=== PATIENT | female | born 1975 | race Hispanic/Latino ===

== ENCOUNTER 2016-06-30 18:14 | Emergency (ER) | payer OTHER ==
[~2016-06-30] VITALS: Ht 152.4 cm; Wt 84.5 kg
[2016-06-30 18:25] VITALS: BP 122/84; PULSE 72; RESP 16; O2SAT 100
--- NOTE | 2016-06-30 19:32 | ED.REPORT ---
HPI-Headache Date of Service Jun 30, 2016 ED Provider: Sarah AriasO. A 40 year old female with a history of migraines presents to the ED from Urgent Care with a headache onset 2130 last night after work. Associated symptoms include subjective fever, neck pain/pressure, sore throat, and dizziness described as "room spinning." The patient denies rhinorrhea, cough, or other symptoms. Her symptoms are dissimilar from and worse than previous migraines. Nursing Notes Stated Complaint: DIZZINESS, HEADACHE, CHILLS Chief Complaint: Headache Nursing Notes Reviewed: Yes Allergies: Coded Allergies: latex (Verified Allergy, Severe, HIVES, 06/30/16) Uncoded Allergies: UNK (Allergy, Unknown, 10/21/04) No Active Prescriptions or Reported Meds General Time Seen by MD: 19:32 Chief Complaint Headache Hx Obtained From: Patient Arrived By: Walk-in Sudden in Onset?: No Onset Occurred: 21 - 23 hours ago Symptom Duration: Since onset Location: : Generalized Quality: Painful Severity: Current: Moderate Severity: Maximum: Moderate Associated with: Reports: Fever Pertinent Negative: Relieved by nothing Related History: Reports: Headache, migraine hx Recent Healthcare: No recent doctor visit Similar Sx Previous: No Risk-Headache NIH Stroke Scale Level of Consciousness: Alert and responsive (0) Ask Month & Age: Both questions right (0) Open/Close Eyes/Hand [employer]: Performs both tasks (0) Horizontal EO Movements: None (0) Facial Palsy: Normal symmetry (0) Right Arm Motor Drift (10s): No drift 10 sec (0) Left Arm Motor Drift (10s): No drift 10 sec (0) Right Leg Motor Drift (5s): No drift 5 sec (0) Left Leg Motor Drift (5s): No drift 5 sec (0) Limb Ataxia FNF/Heel-White: No ataxia (0) Sensation (Arms/Legs/Face): No sensory loss (0) Language Aphasia: No aphasia, normal (0) Dysarthria: No dysarthria, normal (0) NIHSS Score: 0 Time NIHSS Performed: 19:59 Past Medical History Past Medical History Migraines Past Surgical History Endoscopic cholecystectomy with operative cholangiography Inguinal hernia repair x2 at age 9 Smoking History Unknown if Ever Smoker Social History Other Social History: Good social support Occupation Works in surgery at [employer] Ambulatory Status Independent Review of Systems Constitutional: Reports: Fever (Subjective) Ears / Nose / Throat: Reports: Sore throat GI: Denies: Diarrhea, Vomiting Musculoskeletal: Reports: Neck pain (Pressure) Neurologic: Reports: Dizziness, Headache Complete sys rev & neg: except as marked. Respiratory: Denies: Non-productive cough, Shortness of breath Allergy / Immune: Denies: Rhinorrhea Physical Exam Initial Vital Signs Vital Signs (First) Date Time Temp Pulse Resp B/P Pulse Ox O2 Delivery O2 Flow Rate FiO2 06/30/16 18:25 36.8 72 16 122/84 100 Room Air Initial VS: Reviewed Respiratory: Breath sounds normal, Clear to auscultation, No respiratory distress Cardiovascular: Regular rate & rhythm, Heart sounds normal Abdomen / GI: Soft, Non-tender Skin: Warm, Dry, No cyanosis Psychiatric: Mood/affect normal, Behavior normal, Normal thought content General/Constitutional: Awake, Alert, No acute distress Head / Eyes: Atraumatic, Normocephalic, PERRL, EOMI Neck: Supple, Full range of motion, Non-tender Neurologic: Oriented X3, Speech NL, No motor deficits, No sensory deficits ENT: Airway patent, Mucous membranes moist Pharynx / Tonsils / Uvula: Positive: Tonsillar erythema L, Tonsillar erythema R , Tonsillar swelling L, Tonsillar swelling R Interpretation & Diagnostics Interpretation & Diagnostics: INFLUENZA NEGATIVE RAPID STREP NEGATIVE Lab Results Interpretation Result Diagram: 06/30/16200706/30/162007 Test 06/30/16 20:08 White Blood Count 8.4th/mm3 (3.8-10.1) Red Blood Count 4.65mil/mm3 (3.90-5.20) Hemoglobin 9.2g/dL (12.0-15.6) Hematocrit 31.4% (35.0-46.0) Mean Corpuscular Volume 67.5fL (81-100) Mean Corpuscular Hemoglobin 19.8pg (27.0-35.0) Mean Corpuscular Hemoglobin Concent 29.3% (32.0-37.0) Red Cell Distribution Width 18.7% (12.3-15.4) Platelet Count 448bil/L (150-400) Neutrophils (%) (Auto) 65.0% (40-74) Lymphocytes (%) (Auto) 22.5% (14-46) Monocytes (%) (Auto) 9.4% (4-12) Eosinophils (%) (Auto) 2.6% (0-5) Basophils (%) (Auto) 0.4% (0-3) Sodium Level 140mEq/L (134-144) Potassium Level 4.0mEq/L (3.5-5.2) Chloride Level 105mEq/L (97-108) Carbon Dioxide Level 23mmol/L (18-29) Blood Urea Nitrogen 12mg/dL (6-24) Creatinine 0.41mg/dL (0.57-1.00) Estimat Glomerular Filtration Rate 245mL/min (>59) Glucose Level 95mg/dL (60-99) Calcium Level 9.3mg/dL (8.5-10.1) Total Bilirubin 0.2mg/dL (0.0-1.2) Aspartate Amino Transf (AST/SGOT) 19U/L (0-50) Alanine Aminotransferase (ALT/SGPT) 17U/L (0-32) Alkaline Phosphatase 58U/L (25-150) C-Reactive Protein 0.4mg/dL (0.0-0.5) Total Protein 7.1g/dL (6.4-8.4) Albumin 3.8g/dL (3.4-5.0) Procalcitonin < 0.02ng/mL (0.00-0.08) CT Head Interpretation IMPRESSION: 1. No acute intracranial abnormality. Dictated by: Mark Roa M.D. on 06/30/2016 at 21:03 Study: Head CT no contrast Interpretation / Wet Read by: Interpret - Radiologist Re-Eval/Medical Decision Source of Hx: Old records Re-Evaluation/Progress : Time of Eval: 21:44 )( Patient Status: Condition improved, Pain improved Re-Evaluation/Progress Note: Patient rechecked. She is feeling much better. Discussed with patient possibility of lumbar puncture but she declines. Discussed with patient lab and CT results, diagnosis, and plan for discharge. Follow-up and return to the ER instructions given. Patient agrees with plan for care and all questions were addressed. Counseled Regarding: Diagnosis, Lab results, Need for follow-up, When/why to return to ED Discharge & Departure Impression: Primary Impression: Headache Headache type: tension-type Headache chronicity pattern: acute headache Intractability: not intractable Qualified Code: G44.209 - Tension-type headache, unspecified, not intractable Disposition: Home Discharge Condition All VS Reviewed: Yes Condition: Improved Patient Instructions: Acute Headache (ED) Additional Instructions: Thank you for entrusting us with your care. Your CT exam today was normal and your lab work was reassuring, although you were anemic and you need to begin taking daily iron supplements. Rest tonight and do not drive or consume sedating medication tonight. Stay home from work tomorrow. Please take Ativan, 1/2 tablet every 8 hours, as needed for your muscle spasms or tension headache. Do not drink alcohol or drive while taking Ativan. Call your primary care provider tomorrow for a follow-up appointment to discuss your headache and anemia. Return to the ER with any new or worsening symptoms including fever, neck stiffness, and worsening headache. Referrals: [facility] (PCP) [facility] Latohsa Attestation Portions of this note were transcribed by Lori Arevalo. I, Dr. Perez, personally performed the history, physical exam, and medical decision-making; I reviewed and confirmed the accuracy of the information in the transcribed note. Signed by: Latosha Mckinney, 06/30/2016, 22:07 copies to: [facility] Kade Perez DO Jun 30, 2016 19:32 LORI AREVALO Jun 30, 2016 20:02
[2016-06-30] MEDS ORDERED: diphenhydrAMINE 25 mg Capsule PO ONE (20:00)
[2016-06-30] MEDS ORDERED: Dexamethasone 10 mg/mL Inj IM ONE (20:00)
[2016-06-30] MEDS ORDERED: LORazepam 0.5 mg Tablet PO ONE (20:00)
[2016-06-30 20:15] LABS: BASOPHILS % (AUTO) 0.4 % (0-3); EOSINOPHILS % (AUTO) 2.6 % (0-5); MONOCYTES % (AUTO) 9.4 % (4-12); Mean Corpuscular Hemoglobin 19.8 pg (27.0-35.0); Mean Corpuscular Volume 67.5 fL (81-100); Platelet Count 448 bil/L (150-400)
--- NOTE | 2016-06-30 21:07 | DRSVH ---
PROCEDURE: CT BRAIN WITHOUT CONTRAST ([id number]) INDICATIONS: headache TECHNIQUE: Noncontrast 4.5 mm thick angled axial sections acquired from the foramen magnum to the vertex, with c oronal reformats. COMPARISON: None. FINDINGS: Image quality: Excellent. CSF spaces: Basal cisterns are patent. No extra-axial fluid collections. Ventricles are normal in size and shape. Brain: No intracranial hemorrhage, mass, or mass effect. Lowe-white matter interface is preserved. Skull and face: Calvarium and visualized facial bones are intact, without suspicious lesions. Sinuses: Visualized sinuses and mastoids are clear. IMPRESSION: 1. No acute intracranial abnormality. Dictated by: Mark Roa M.D. on 06/30/2016 at 21:03 Approved by: Mark Roa M.D. on 06/30/2016 at 21:05
[2016-06-30] MEDS ORDERED: _LORazepam 1 mg Tablet PO PRN (21:45)
[2016-06-30 22:17] VITALS: BP 125/90; PULSE 71; RESP 18; O2SAT 100
== END 2016-06-30 22:39 | disposition home or self-care (01) ==
LOC: SED 18:14
DX: G44.209 Tension-type headache, unspecified, not intractable (principal); R50.9 Fever, unspecified; M54.2 Cervicalgia; J02.9 Acute pharyngitis, unspecified; Z91.040 Latex allergy status
CPT/HCPCS: 36415; 70450; 80053; 84145; 85025; 86140; 87804; 87880; 96372; 99285; J1100; J1885